=== PATIENT | female | born 1975 | race Caucasian/White ===

== ENCOUNTER 2019-05-13 21:17 | Emergency (ER) | payer OTHER ==
[~2019-05-13] VITALS: Ht 152.4 cm; Wt 86.2 kg
[2019-05-13 21:19] VITALS: BP 153/78
== END 2019-05-13 22:05 | disposition home or self-care (01) ==
LOC: ER 21:17
DX: M72.2 Plantar fascial fibromatosis (principal); Z98.51 Tubal ligation status

== ENCOUNTER 2019-07-22 16:06 | Emergency (ER) | payer OTHER ==
[~2019-07-22] VITALS: Ht 172.7 cm; Wt 90.7 kg
[2019-07-22 18:59] VITALS: BP 190/90
== END 2019-07-22 18:59 | disposition home or self-care (01) ==
LOC: ER 16:06
DX: S93.601A Unspecified sprain of right foot, initial encounter (principal); X50.1XXA Overexertion from prolonged static or awkward postures, initial encounter; Y93.89 Activity, other specified; Y92.89 Other specified places as the place of occurrence of the external cause; Y99.8 Other external cause status